=== PATIENT | female | born 1975 | race Caucasian/White ===

== ENCOUNTER 2020-04-21 12:18 | Outpatient (REF) | payer BC, SELFPAY ==
--- NOTE | 2020-04-21 11:00 | PAPFT_PTH ---
PATIENT: Amelia Townsend LOC: [facility]#:[id number] AGE/SX: 45/F ROOM: RE04/21/[address]: Ellie Mcleod : 1975 BED: DIS: 04/21/2020 SPEC #: [id number] RECD: 04/22/20 10:42 STATUS: SIM PALMA #: [id number] ARI: 04/21/20 11:[address]: Ellie Vogt DEPT: [facility] Cytology RECD BY: Roma Ryan Tissues: 1 - CX/ENDOCX FOR PAP SMEARS Procedures: PAP THIN PREP/[facility] Screening HPV DNA PROBE Comments: [id number] ([id number] [facility] [place])
== END 2020-04-21 12:38 ==
LOC: NCHCN 12:18
PROVIDERS: PCP Nurse Practitioner Family; Visit Provider Nurse Practitioner Family
DX: Z00.00 Encounter for general adult medical examination without abnormal findings (principal); Z12.4 Encounter for screening for malignant neoplasm of cervix; Z11.51 Encounter for screening for human papillomavirus (HPV)
CPT/HCPCS: 88142; 87624

== ENCOUNTER 2023-10-28 16:10 | Outpatient (REF) | payer BC, SELFPAY ==
[2023-10-28 21:26] LABS: ESR 6 mm/hr (0-20)
[2023-10-28 22:33] LABS: C-Reactive Protein < 0.50 mg/dL (<or=0.5); TSH 0.44 uIU/Ml (0.36-3.74)
[2023-10-30 09:46] LABS: Cyclic Citrullinated Peptide <2.5 U/mL (<5.0)
[2023-10-30 12:47] LABS: Lyme Ab w Rflx to Lyme Confirm Negative (Negative)
[2023-10-30 15:35] LABS: ANA Interpretation Negative (Negative)
== END 2023-10-28 16:11 | disposition home or self-care (01) ==
LOC: NCHCN 16:10
PROVIDERS: PCP Nurse Practitioner Family; Visit Provider Nurse Practitioner Family
DX: R53.83 Other fatigue (principal)
CPT/HCPCS: 85652; 86200; 84443; 86038; 86140; 86618

== ENCOUNTER 2024-10-30 13:37 | Outpatient (REF) | payer BC, SELFPAY ==
[2024-10-30 14:39] LABS: Abs Immature Grans 0.02 10^3/uL (0.0-0.06); Absolute Basophil Count 0.08 10^3/uL (0.0-0.2); Absolute Eosinophil Count 0.32 10^3/uL (0.0-0.7); Absolute Lymphocyte Count 2.07 10^3/uL (1.2-3.4); Absolute Monocyte Count 0.59 10^3/uL (0.1-0.8); Absolute Neutrophil Count 4.34 10^3/uL (1.2-6.7); Basophils % 1.1 %; Eosinophils % 4.3 %; HCT 44.8 % (36.0-46.0); Immature Grans % 0.3 %; Lymphocytes % 27.9 %; MCH 31.6 pg (27.0-33.0); MCHC 33.5 % (32.0-36.0); MCV 95 fL (80-95); MPV 10.5 fL (8.0-11.0); Neutrophils % 58.4 %; Platelet Count 291 10^3/uL (130-400); RBC 4.74 10^6/uL (3.93-5.22); RDW 11.7 % (11.7-14.6); RDW-SD 40.9 fL; WBC 7.42 10^3/uL (4.4-10.8)
[2024-10-30 15:08] LABS: ALT 21 U/L (14-59); AST 17 U/L (15-37); Albumin 4.1 g/dL (3.4-5.0); Alkaline Phosphatase 55 U/L (46-116); Anion Gap 4.9 mmol/L (3-11); BUN 14 mg/dL (7-18); Bilirubin, Total 0.8 mg/dL (0.2-1.0); CO2 31.1 mmol/L (21.0-32.0); CREATININE 0.8 mg/dL (0.55-1.02); Calcium 9.3 mg/dL (8.5-10.1); Chloride 104 mmol/L (98-107); Estimated GFR 90.27 (mL/min/1.73m2); Glucose 106 mg/dL (74-106); Potassium 4.3 mmol/L (3.5-5.1); Sodium 140 mmol/L (136-145); Total Protein 7.4 g/dL (6.4-8.2)
== END 2024-10-30 13:38 | disposition home or self-care (01) ==
LOC: NCHCN 13:37
PROVIDERS: PCP Nurse Practitioner Family; Visit Provider Internal Medicine
DX: R10.32 Left lower quadrant pain (principal)
CPT/HCPCS: 80053; 85025

== ENCOUNTER 2024-11-05 10:29 | Outpatient (REF) | payer BC, SELFPAY ==
--- NOTE | 2024-11-05 09:15 | PAPFT_PTH ---
PATIENT: Amelia Townsend LOC: [facility]#:[id number] AGE/SX: 49/F ROOM: RE11/05/[address]: Ellie Mcleod : 1975 BED: DIS: 11/05/2024 SPEC #: [id number] RECD: 11/05/24 18:20 STATUS: SIM RECarlin #: [id number] ARI: 11/05/24 09:[address]: Ellie Vogt DEPT: [facility] Cytology RECD BY: Giovanna Price Tissues: 1 - CX/ENDOCX FOR PAP SMEARS Procedures: PAP THIN PREP/[facility] Screening HPV DNA PROBE Comments: [id number] (HPV 16 & 18/45)
[2024-11-05 16:24] LABS: TSH 0.32 uIU/mL (0.36-3.74)
[2024-11-05 18:43] LABS: FREE T4 0.98 ng/dL (0.76-1.46)
== END 2024-11-05 10:30 | disposition home or self-care (01) ==
LOC: NCHCN 10:29
PROVIDERS: PCP Nurse Practitioner Family; Visit Provider Nurse Practitioner Family
DX: Z11.51 Encounter for screening for human papillomavirus (HPV) (principal); R00.2 Palpitations; R79.89 Other specified abnormal findings of blood chemistry; Z01.419 Encounter for gynecological examination (general) (routine) without abnormal findings
CPT/HCPCS: 88142; 84439; 84443; 87624

== ENCOUNTER 2025-05-11 18:49 | Outpatient (REF) | payer BC, SELFPAY | END 2025-05-11 18:50 | disposition home or self-care (01) | LOC: NCHCN 18:49 | PROVIDERS: PCP Nurse Practitioner Family; Visit Provider Physician Assistant | DX: R30.0 Dysuria (principal) | CPT/HCPCS: 87086 ==